=== PATIENT | male | born 1950 | race Caucasian/White ===

== ENCOUNTER 2017-12-13 12:47 | Outpatient (REF) | payer MEDICARE, MEDICAID, SELFPAY ==
[2017-12-13 21:32] LABS: Abs Immature Grans 0.01 k/cumm (0.0-0.09); Absolute Basophil Count 0.02 k/cumm (0.0-0.2); Absolute Eosinophil Count 0.18 k/cumm (0.0-0.7); Absolute Lymphocyte Count 1.19 k/cumm (1.2-3.4); Absolute Monocyte Count 0.73 k/cumm (0.11-0.7); Absolute Neutrophil Count 5.09 k/cumm (1.2-6.7); Basophils % 0.3; Eosinophils % 2.5; HGB 14.4 g/dL (13.5-17.5); Immature Grans % 0.1; Lymphocytes % 16.5; Mean Corp. HGB Concentration 31.3 g/dL (32.0-36.0); Mean Corpuscular Hemoglobin 29.7 pg (27.0-33.0); Mean Corpuscular Volume 94.8 fL (80-95); Mean Platelet Volume 12.8 fL (8.0-11.0); Monocytes % 10.1; Neutrophils % 70.5; Platelet Count 123 x1000/uL (130-400); RBC 4.85 m/cumm (4.50-6.00); White Blood Cell Count 7.22 k/cumm (4.4-10.8)
[2017-12-13 21:57] LABS: ALT 47 U/L (12-78); AST 23 U/L (15-37); Albumin 3.4 g/dL (3.4-5.0); Alkaline Phosphatase 108 U/L (46-116); Anion Gap 8.5 mmol/L (3-11); BUN 27 mg/dL (7-18); Bilirubin, Total 0.7 mg/dL (0.2-1.0); CO2 26.5 mmol/L (21.0-32.0); CREATININE 2.05 mg/dL (0.70-1.30); Calcium 8.9 mg/dL (8.5-10.1); Chloride 107 mmol/L (98-107); Estimated GFR 32.45 (mL/min/1.73m2); Glucose 116 mg/dL (70-100); Potassium 5.1 mmol/L (3.5-5.1); Sodium 142 mmol/L (136-145); TSH (W/Ref FT4) 1.38 uIU/mL (0.358-3.74); Total Protein 6.8 g/dL (6.4-8.2)
== END 2017-12-13 12:48 ==
LOC: NCHCN 12:47
PROVIDERS: PCP Registered Nurse; Visit Provider Nurse Practitioner Family
DX: I48.91 Unspecified atrial fibrillation (principal)
CPT/HCPCS: 80053; 84443; 85025

== ENCOUNTER 2018-04-17 13:35 | Outpatient (REF) | payer MEDICARE, MEDICAID, SELFPAY ==
[2018-04-17 22:10] LABS: Anion Gap 3.5 mmol/L (3-11); BUN 28 mg/dL (7-18); CO2 30.5 mmol/L (21.0-32.0); CREATININE 1.92 mg/dL (0.70-1.30); Calcium 8.9 mg/dL (8.5-10.1); Chloride 109 mmol/L (98-107); Glucose 97 mg/dL (70-100); NT-proBNP 1289 pg/mL; Potassium 5.3 mmol/L (3.5-5.1); Sodium 143 mmol/L (136-145)
[2018-04-17 23:10] LABS: HCT 40.4 % (40.0-50.0); HGB 12.6 g/dL (13.5-17.5); Mean Corp. HGB Concentration 31.2 g/dL (32.0-36.0); Mean Corpuscular Hemoglobin 29.8 pg (27.0-33.0); Mean Corpuscular Volume 95.5 fL (80-95); Mean Platelet Volume 13.1 fL (8.0-11.0); Platelet Count 109 x1000/uL (130-400); RBC 4.23 m/cumm (4.50-6.00); RBC Distribution Width 14.5 % (11.8-14.1); White Blood Cell Count 7.41 k/cumm (4.4-10.8)
== END 2018-04-17 13:55 ==
LOC: NCHCN 13:35
PROVIDERS: PCP Registered Nurse; Visit Provider Registered Nurse
DX: I10 Essential (primary) hypertension (principal); R06.00 Dyspnea, unspecified; I48.91 Unspecified atrial fibrillation; Z86.79 Personal history of other diseases of the circulatory system
CPT/HCPCS: 80048; 85027; 83880

== ENCOUNTER 2018-04-24 12:11 | Outpatient (REF) | payer MEDICARE, MEDICAID, SELFPAY ==
[2018-04-24 22:22] LABS: Anion Gap 5.6 mmol/L (3-11); BUN 34 mg/dL (7-18); CO2 30.4 mmol/L (21.0-32.0); CREATININE 2.36 mg/dL (0.70-1.30); Calcium 9.1 mg/dL (8.5-10.1); Chloride 108 mmol/L (98-107); Estimated GFR 27.59 (mL/min/1.73m2); Glucose 196 mg/dL (70-100); Potassium 5.4 mmol/L (3.5-5.1); Sodium 144 mmol/L (136-145)
== END 2018-04-24 12:31 ==
LOC: NCHCN 12:11
PROVIDERS: PCP Registered Nurse; Visit Provider Registered Nurse
DX: N18.9 Chronic kidney disease, unspecified (principal)
CPT/HCPCS: 80048

== ENCOUNTER 2018-06-18 21:19 | Outpatient (REF) | payer MEDICARE, MEDICAID, SELFPAY ==
[2018-06-18 22:12] LABS: Anion Gap 6.6 mmol/L (3-11); BUN 33 mg/dL (7-18); CO2 29.4 mmol/L (21.0-32.0); CREATININE 1.98 mg/dL (0.70-1.30); Calcium 9.1 mg/dL (8.5-10.1); Chloride 108 mmol/L (98-107); Estimated GFR 33.78 (mL/min/1.73m2); Glucose 114 mg/dL (70-100); Potassium 4.9 mmol/L (3.5-5.1); Sodium 144 mmol/L (136-145)
== END 2018-06-18 21:39 ==
LOC: NCHCN 21:19
PROVIDERS: PCP Registered Nurse; Visit Provider Registered Nurse
DX: N18.9 Chronic kidney disease, unspecified (principal)
CPT/HCPCS: 80048

== ENCOUNTER 2018-07-16 11:24 | Outpatient (REF) | payer MEDICARE, MEDICAID, SELFPAY ==
[2018-07-16 21:22] LABS: Anion Gap 5.9 mmol/L (3-11); BUN 32 mg/dL (7-18); CO2 31.1 mmol/L (21.0-32.0); Chloride 107 mmol/L (98-107); Estimated GFR 33.39 (mL/min/1.73m2); Glucose 121 mg/dL (70-100); Potassium 4.8 mmol/L (3.5-5.1); Sodium 144 mmol/L (136-145)
== END 2018-07-16 11:44 ==
LOC: NCHCN 11:24
PROVIDERS: PCP Registered Nurse; Visit Provider Registered Nurse
DX: N18.9 Chronic kidney disease, unspecified (principal)
CPT/HCPCS: 80048

== ENCOUNTER 2018-08-21 22:23 | Outpatient (REF) | payer MEDICARE, MEDICAID, SELFPAY ==
[2018-08-21 22:18] LABS: BUN 35 mg/dL (7-18); CREATININE 2.05 mg/dL (0.70-1.30); Calcium 8.9 mg/dL (8.5-10.1); Chloride 104 mmol/L (98-107); Estimated GFR 32.45 (mL/min/1.73m2); Glucose 129 mg/dL (70-100); Magnesium 1.9 mg/dL (1.8-2.4); Potassium 4.4 mmol/L (3.5-5.1); Sodium 142 mmol/L (136-145)
[2018-08-21 22:42] LABS: PHOSPHORUS 3.8 mg/dL (2.6-4.7)
== END 2018-08-21 22:43 ==
LOC: NCHCN 22:23
PROVIDERS: PCP Registered Nurse; Visit Provider Registered Nurse
DX: N18.3 Chronic kidney disease, stage 3 (moderate) (principal)
CPT/HCPCS: 80048; 83735; 84100

== ENCOUNTER 2018-09-02 12:27 | Outpatient (REF) | payer MEDICARE, MEDICAID, SELFPAY ==
[2018-09-02 21:13] LABS: COMMENT (LAB VIEW ONLY) 156.55 mg/dL; Microalb ug/mg Crea 46.2 ug/mg Cr
== END 2018-09-02 12:47 ==
LOC: NCHCN 12:27
PROVIDERS: PCP Registered Nurse; Visit Provider Registered Nurse
DX: E11.9 Type 2 diabetes mellitus without complications (principal)
CPT/HCPCS: 82043; 82570

== ENCOUNTER 2018-10-14 13:33 | Outpatient (REF) | payer MEDICARE, MEDICAID, SELFPAY ==
[2018-10-14 21:43] LABS: Anion Gap 5.4 mmol/L (3-11); BUN 26 mg/dL (7-18); CO2 31.6 mmol/L (21.0-32.0); CREATININE 1.78 mg/dL (0.70-1.30); Calcium 9.5 mg/dL (8.5-10.1); Chloride 106 mmol/L (98-107); Estimated GFR 38.09 (mL/min/1.73m2); Glucose 93 mg/dL (70-100); Potassium 4.6 mmol/L (3.5-5.1); Sodium 143 mmol/L (136-145)
[2018-10-14 21:57] LABS: Magnesium 2.1 mg/dL (1.8-2.4)
== END 2018-10-14 13:53 ==
LOC: NCHCN 13:33
PROVIDERS: Internal Medicine Nephrology; PCP Registered Nurse; Visit Provider Registered Nurse
DX: N18.3 Chronic kidney disease, stage 3 (moderate) (principal)
CPT/HCPCS: 80048; 83735

== ENCOUNTER 2019-03-03 08:46 | Outpatient (REF) | payer MEDICARE, MEDICAID, SELFPAY ==
[2019-03-03 22:18] LABS: Anion Gap 10.6 mmol/L (3-11); BUN 35 mg/dL (7-18); CO2 27.4 mmol/L (21.0-32.0); CREATININE 2.04 mg/dL (0.70-1.30); Calcium 9.7 mg/dL (8.5-10.1); Chloride 104 mmol/L (98-107); Estimated GFR 32.54 (mL/min/1.73m2); Glucose 178 mg/dL (70-100); Potassium 4.4 mmol/L (3.5-5.1); Sodium 142 mmol/L (136-145)
[2019-03-03 22:20] LABS: Magnesium 1.8 mg/dL (1.8-2.4)
== END 2019-03-03 09:06 ==
LOC: NCHCN 08:46
PROVIDERS: Internal Medicine Nephrology; PCP Registered Nurse; Visit Provider Registered Nurse
DX: N18.3 Chronic kidney disease, stage 3 (moderate) (principal)
CPT/HCPCS: 80048; 83735

== ENCOUNTER 2019-04-30 09:47 | Outpatient (REF) | payer MEDICARE, MEDICAID, SELFPAY ==
[2019-04-30 22:01] LABS: Anion Gap 6.2 mmol/L (3-11); BUN 26 mg/dL (7-18); CO2 29.8 mmol/L (21.0-32.0); CREATININE 1.77 mg/dL (0.70-1.30); Calcium 9.4 mg/dL (8.5-10.1); Chloride 108 mmol/L (98-107); Estimated GFR 38.33 (mL/min/1.73m2); Glucose 125 mg/dL (74-106); Potassium 4.7 mmol/L (3.5-5.1); Sodium 144 mmol/L (136-145)
[2019-04-30 23:03] LABS: INR 1.8 (0.9-1.1); Prothrombin Time 17.5 sec (9.3-11.0)
== END 2019-04-30 10:07 ==
LOC: NCHCN 09:47
PROVIDERS: PCP Registered Nurse; Visit Provider Registered Nurse
DX: E11.9 Type 2 diabetes mellitus without complications (principal); I48.91 Unspecified atrial fibrillation; Z79.01 Long term (current) use of anticoagulants
CPT/HCPCS: 80048; 85610

== ENCOUNTER 2019-07-29 13:07 | Outpatient (REF) | payer MEDICARE, MEDICAID, SELFPAY ==
[2019-07-29 21:23] LABS: Anion Gap 7.8 mmol/L (3-11); BUN 35 mg/dL (7-18); CO2 30.2 mmol/L (21.0-32.0); CREATININE 2.25 mg/dL (0.70-1.30); Calcium 8.7 mg/dL (8.5-10.1); Chloride 105 mmol/L (98-107); Estimated GFR 29.06 (mL/min/1.73m2); Glucose 69 mg/dL (74-106); Potassium 4.3 mmol/L (3.5-5.1); Sodium 143 mmol/L (136-145)
== END 2019-07-29 13:27 ==
LOC: NCHCN 13:07
PROVIDERS: PCP Registered Nurse; Visit Provider Registered Nurse
DX: I50.23 Acute on chronic systolic (congestive) heart failure (principal); N18.3 Chronic kidney disease, stage 3 (moderate)
CPT/HCPCS: 80048

== ENCOUNTER 2019-07-31 11:48 | Outpatient (REF) | payer MEDICARE, MEDICAID, SELFPAY ==
[2019-07-31 21:02] LABS: Anion Gap 4.3 mmol/L (3-11); BUN 34 mg/dL (7-18); CO2 31.7 mmol/L (21.0-32.0); CREATININE 2.16 mg/dL (0.70-1.30); Calcium 8.9 mg/dL (8.5-10.1); Chloride 107 mmol/L (98-107); Estimated GFR 30.46 (mL/min/1.73m2); Glucose 83 mg/dL (74-106); Potassium 4.5 mmol/L (3.5-5.1); Sodium 143 mmol/L (136-145)
== END 2019-07-31 12:08 ==
LOC: LBN 11:48
PROVIDERS: PCP Registered Nurse; Visit Provider Internal Medicine Nephrology
DX: N17.8 Other acute kidney failure (principal)
CPT/HCPCS: 80048

== ENCOUNTER 2019-09-02 14:43 | Outpatient (REF) | payer MEDICARE, MEDICAID, SELFPAY ==
[2019-09-02 20:43] LABS: Anion Gap 6.2 mmol/L (3-11); BUN 35 mg/dL (7-18); CO2 30.8 mmol/L (21.0-32.0); CREATININE 2.03 mg/dL (0.70-1.30); Calcium 8.8 mg/dL (8.5-10.1); Chloride 107 mmol/L (98-107); Estimated GFR 32.73 (mL/min/1.73m2); Glucose 101 mg/dL (74-106); Potassium 4.6 mmol/L (3.5-5.1); Sodium 144 mmol/L (136-145)
== END 2019-09-02 15:03 ==
LOC: NCHCN 14:43
PROVIDERS: PCP Registered Nurse; Visit Provider Registered Nurse
DX: E87.5 Hyperkalemia (principal)
CPT/HCPCS: 80048

== ENCOUNTER 2019-10-29 22:30 | Outpatient (REF) | payer MEDICARE, MEDICAID, SELFPAY ==
[2019-10-29 22:11] LABS: BUN 34 mg/dL (7-18); CREATININE 2.04 mg/dL (0.70-1.30); Calcium 8.6 mg/dL (8.5-10.1); Chloride 106 mmol/L (98-107); Estimated GFR 32.45 (mL/min/1.73m2); Glucose 110 mg/dL (74-106); Potassium 4.5 mmol/L (3.5-5.1); Sodium 143 mmol/L (136-145)
== END 2019-10-29 22:50 ==
LOC: NCHCN 22:30
PROVIDERS: PCP Registered Nurse; Visit Provider Registered Nurse
DX: I10 Essential (primary) hypertension (principal); N18.9 Chronic kidney disease, unspecified
CPT/HCPCS: 80048

== ENCOUNTER 2020-01-28 09:30 | Outpatient (REF) | payer MEDICARE, MEDICAID, SELFPAY ==
[2020-01-31 10:13] LABS: Patient Race White; SARS-CoV-2 RNA Undetected (Undetected); SARS-CoV-2 Specimen Source Nasal
== END 2020-01-28 09:50 ==
LOC: NCHCN 09:30
PROVIDERS: PCP Registered Nurse; Visit Provider Registered Nurse
DX: Z11.59 Encounter for screening for other viral diseases (principal)
CPT/HCPCS: U0003

== ENCOUNTER 2020-02-06 10:54 | Outpatient (REF) | payer MEDICARE, MEDICAID, SELFPAY ==
[2020-02-06 22:02] LABS: BUN 28 mg/dL (7-18); CREATININE 1.97 mg/dL (0.70-1.30); Chloride 105 mmol/L (98-107); Estimated GFR 33.78 (mL/min/1.73m2); Glucose 101 mg/dL (74-106); Potassium 4.2 mmol/L (3.5-5.1); Sodium 143 mmol/L (136-145)
== END 2020-02-06 11:14 ==
LOC: LBN 10:54
PROVIDERS: PCP Registered Nurse; Visit Provider Internal Medicine Nephrology
DX: N17.9 Acute kidney failure, unspecified (principal)
CPT/HCPCS: 80048

== ENCOUNTER 2020-03-22 15:39 | Outpatient (REF) | payer MEDICARE, MEDICAID, SELFPAY ==
[2020-03-22 22:08] LABS: Anion Gap 8.5 mmol/L (3-11); BUN 43 mg/dL (7-18); CO2 27.5 mmol/L (21.0-32.0); CREATININE 2.25 mg/dL (0.70-1.30); Calcium 8.7 mg/dL (8.5-10.1); Chloride 106 mmol/L (98-107); Estimated GFR 28.98 (mL/min/1.73m2); Glucose 139 mg/dL (74-106); Potassium 4.6 mmol/L (3.5-5.1); Sodium 142 mmol/L (136-145)
== END 2020-03-22 15:59 ==
LOC: LBN 15:39
PROVIDERS: PCP Registered Nurse; Visit Provider Internal Medicine Nephrology
DX: N18.30 Chronic kidney disease, stage 3 unspecified (principal)
CPT/HCPCS: 80048

== ENCOUNTER 2020-04-07 11:38 | Outpatient (REF) | payer MEDICARE, MEDICAID, SELFPAY ==
[2020-04-07 22:31] LABS: ALT 41 U/L (16-63); AST 22 U/L (15-37); Albumin 3.2 g/dL (3.4-5.0); Alkaline Phosphatase 124 U/L (46-116); Anion Gap 6.7 mmol/L (3-11); BUN 36 mg/dL (7-18); Bilirubin, Total 0.7 mg/dL (0.2-1.0); CO2 29.3 mmol/L (21.0-32.0); CREATININE 2.16 mg/dL (0.70-1.30); Calcium 8.9 mg/dL (8.5-10.1); Chloride 107 mmol/L (98-107); Estimated GFR 30.38 (mL/min/1.73m2); Glucose 123 mg/dL (74-106); Potassium 4.7 mmol/L (3.5-5.1); Sodium 143 mmol/L (136-145); Total Protein 6.7 g/dL (6.4-8.2)
== END 2020-04-07 11:58 ==
LOC: NCHCN 11:38
PROVIDERS: Internal Medicine Nephrology; PCP Registered Nurse; Visit Provider Registered Nurse
DX: N18.30 Chronic kidney disease, stage 3 unspecified (principal)
CPT/HCPCS: 80053

== ENCOUNTER 2020-07-07 12:08 | Outpatient (REF) | payer MEDICARE, MEDICAID, SELFPAY ==
[2020-07-07 13:15] LABS: ALT 41 U/L (16-63); AST 23 U/L (15-37); Albumin 3.2 g/dL (3.4-5.0); Alkaline Phosphatase 111 U/L (46-116); Anion Gap 9.4 mmol/L (3-11); BUN 38 mg/dL (7-18); Bilirubin, Total 0.8 mg/dL (0.2-1.0); CO2 27.6 mmol/L (21.0-32.0); CREATININE 1.9 mg/dL (0.70-1.30); Calcium 9.1 mg/dL (8.5-10.1); Chloride 105 mmol/L (98-107); Estimated GFR 35.22 (mL/min/1.73m2); Glucose 176 mg/dL (74-106); Potassium 4.6 mmol/L (3.5-5.1); Sodium 142 mmol/L (136-145); Total Protein 6.8 g/dL (6.4-8.2)
== END 2020-07-07 12:09 | disposition home or self-care (01) ==
LOC: NCHCN 12:08
PROVIDERS: PCP Registered Nurse; Visit Provider Internal Medicine Nephrology
DX: N18.30 Chronic kidney disease, stage 3 unspecified (principal)
CPT/HCPCS: 80053

== ENCOUNTER 2020-07-28 17:04 | Outpatient (REF) | payer MEDICARE, MEDICAID, SELFPAY ==
[2020-07-28 22:32] LABS: COMMENT (LAB VIEW ONLY) 104.99 mg/dL
== END 2020-07-28 17:05 | disposition home or self-care (01) ==
LOC: NCHCN 17:04
PROVIDERS: PCP Registered Nurse; Visit Provider Registered Nurse
DX: E11.9 Type 2 diabetes mellitus without complications (principal); R80.9 Proteinuria, unspecified
CPT/HCPCS: 82043; 82570

== ENCOUNTER 2020-09-17 12:07 | Outpatient (REF) | payer MEDICARE, MEDICAID, SELFPAY ==
[2020-09-17 21:14] LABS: Anion Gap 7.4 mmol/L (3-11); BUN 41 mg/dL (7-18); CO2 28.6 mmol/L (21.0-32.0); CREATININE 2.2 mg/dL (0.70-1.30); Calcium 9.2 mg/dL (8.5-10.1); Chloride 106 mmol/L (98-107); Estimated GFR 29.65 (mL/min/1.73m2); Glucose 97 mg/dL (74-106); Magnesium 2.1 mg/dL (1.8-2.4); Potassium 4.9 mmol/L (3.5-5.1); Sodium 142 mmol/L (136-145)
== END 2020-09-17 12:08 | disposition home or self-care (01) ==
LOC: NCHCN 12:07
PROVIDERS: PCP Registered Nurse; Visit Provider Registered Nurse
DX: N18.9 Chronic kidney disease, unspecified (principal); D63.1 Anemia in chronic kidney disease
CPT/HCPCS: 80048; 83735

== ENCOUNTER 2020-11-26 12:30 | Outpatient (REF) | payer MEDICARE, MEDICAID, SELFPAY ==
[2020-11-26 16:12] LABS: Anion Gap 13.4 mmol/L (3-11); BUN 46 mg/dL (7-18); CO2 21.6 mmol/L (21.0-32.0); Chloride 108 mmol/L (98-107); Glucose 117 mg/dL (74-106); Magnesium 2.2 mg/dL (1.8-2.4); Sodium 143 mmol/L (136-145)
[2020-11-29 09:27] LABS: PSA, Screening 0.6 ng/mL (0.0-6.5)
== END 2020-11-26 12:31 | disposition home or self-care (01) ==
LOC: NCHCN 12:30
PROVIDERS: PCP Registered Nurse; Visit Provider Registered Nurse
DX: Z12.5 Encounter for screening for malignant neoplasm of prostate (principal); I12.9 Hypertensive chronic kidney disease with stage 1 through stage 4 chronic kidney disease, or unspecified chronic kidney disease; N18.9 Chronic kidney disease, unspecified
CPT/HCPCS: 80048; 84153; 83735

== ENCOUNTER 2021-01-27 16:24 | Outpatient (REF) | payer MEDICARE, MEDICAID, SELFPAY ==
[2021-01-27 20:43] LABS: Magnesium 2.3 mg/dL (1.8-2.4)
[2021-01-27 20:51] LABS: ALT 37 U/L (16-63); AST 23 U/L (15-37); Albumin 3.5 g/dL (3.4-5.0); Alkaline Phosphatase 91 U/L (46-116); Anion Gap 6.7 mmol/L (3-11); BUN 47 mg/dL (7-18); Bilirubin, Total 0.6 mg/dL (0.2-1.0); CO2 28.3 mmol/L (21.0-32.0); CREATININE 1.9 mg/dL (0.70-1.30); Calcium 9.1 mg/dL (8.5-10.1); Chloride 110 mmol/L (98-107); Estimated GFR 35.12 (mL/min/1.73m2); Glucose 81 mg/dL (74-106); Sodium 145 mmol/L (136-145); Total Protein 6.8 g/dL (6.4-8.2)
[2021-01-27 21:03] LABS: Calculated LDL 70 mg/dL (<100); Cholesterol 123 mg/dL (<200); HDL Cholesterol 33 mg/dL (40-60); Triglyceride 103 mg/dL (<150)
== END 2021-01-27 16:25 | disposition home or self-care (01) ==
LOC: NCHCN 16:24
PROVIDERS: PCP Registered Nurse; Visit Provider Registered Nurse
DX: I10 Essential (primary) hypertension (principal); E78.5 Hyperlipidemia, unspecified
CPT/HCPCS: 80053; 80061; 83735

== ENCOUNTER 2021-02-03 11:19 | Outpatient (REF) | payer MEDICARE, MEDICAID, SELFPAY ==
[2021-02-03 21:19] LABS: PHOSPHORUS 3.5 mg/dL (2.6-4.7)
[2021-02-07 11:17] LABS: Parathyroid Hormone,Intact 233 pg/mL (19-88)
== END 2021-02-03 11:20 | disposition home or self-care (01) ==
LOC: NCHCN 11:19
PROVIDERS: PCP Registered Nurse; Visit Provider Registered Nurse
DX: N18.9 Chronic kidney disease, unspecified (principal)
CPT/HCPCS: 83970; 84100

== ENCOUNTER 2021-03-15 09:48 | Outpatient (REF) | payer MEDICARE, MEDICAID, SELFPAY ==
[2021-03-15 15:24] LABS: Anion Gap 7.9 mmol/L (3-11); BUN 49 mg/dL (7-18); CO2 28.1 mmol/L (21.0-32.0); CREATININE 1.9 mg/dL (0.70-1.30); Calcium 9.2 mg/dL (8.5-10.1); Chloride 109 mmol/L (98-107); Estimated GFR 35.12 (mL/min/1.73m2); Glucose 110 mg/dL (74-106); Potassium 4.4 mmol/L (3.5-5.1); Sodium 145 mmol/L (136-145)
[2021-03-16 10:45] LABS: Parathyroid Hormone,Intact 112 pg/mL (19-88)
== END 2021-03-15 09:49 | disposition home or self-care (01) ==
LOC: NCHCN 09:48
PROVIDERS: PCP Registered Nurse; Visit Provider Registered Nurse
DX: E21.5 Disorder of parathyroid gland, unspecified (principal)
CPT/HCPCS: 80048; 83970

== ENCOUNTER 2021-11-17 17:28 | Outpatient (REF) | payer OTHER, MEDICAID, SELFPAY ==
[2021-11-17 21:13] LABS: BUN 44 mg/dL (7-18); CREATININE 1.8 mg/dL (0.70-1.30); Calcium 9.5 mg/dL (8.5-10.1); Chloride 108 mmol/L (98-107); Estimated GFR 37.27 (mL/min/1.73m2); Glucose 104 mg/dL (74-106); Potassium 4.9 mmol/L (3.5-5.1); Sodium 141 mmol/L (136-145)
== END 2021-11-17 17:29 | disposition home or self-care (01) ==
LOC: NCHCN 17:28
PROVIDERS: PCP Registered Nurse; Visit Provider Registered Nurse
DX: I10 Essential (primary) hypertension (principal); E11.9 Type 2 diabetes mellitus without complications
CPT/HCPCS: 80048

== ENCOUNTER 2021-12-15 15:17 | Outpatient (REF) | payer OTHER, SELFPAY ==
[2021-12-15 16:00] LABS: Anion Gap 9.1 mmol/L (3-11); BUN 48 mg/dL (7-18); CO2 22.9 mmol/L (21.0-32.0); CREATININE 1.8 mg/dL (0.70-1.30); Calcium 9.1 mg/dL (8.5-10.1); Chloride 108 mmol/L (98-107); Estimated GFR 37.27 (mL/min/1.73m2); Glucose 103 mg/dL (74-106); Potassium 4.9 mmol/L (3.5-5.1); Sodium 140 mmol/L (136-145)
[2021-12-15 16:39] LABS: COMMENT (LAB VIEW ONLY) 79.39 mg/dL; Microalb ug/mg Crea 57.4 ug/mg Cr
== END 2021-12-15 15:18 | disposition home or self-care (01) ==
LOC: NCHCN 15:17
PROVIDERS: PCP Registered Nurse; Visit Provider Registered Nurse
DX: E11.9 Type 2 diabetes mellitus without complications (principal); Z51.81 Encounter for therapeutic drug level monitoring
CPT/HCPCS: 80048; 82043; 82570

== ENCOUNTER 2022-03-31 14:36 | Outpatient (REF) | payer OTHER, SELFPAY ==
[2022-03-31 15:29] LABS: Anion Gap 10.5 mmol/L (3-11); BUN 49 mg/dL (7-18); CO2 23.5 mmol/L (21.0-32.0); Calcium 9.4 mg/dL (8.5-10.1); Chloride 106 mmol/L (98-107); Estimated GFR 34.81 (mL/min/1.73m2); Glucose 115 mg/dL (74-106); Potassium 4.5 mmol/L (3.5-5.1); Sodium 140 mmol/L (136-145)
[2022-03-31 16:04] LABS: Hemoglobin A1C 5.7 % (<5.7)
== END 2022-03-31 14:37 | disposition home or self-care (01) ==
LOC: NCHCN 14:36
PROVIDERS: PCP Registered Nurse; Visit Provider Registered Nurse
DX: E11.9 Type 2 diabetes mellitus without complications (principal); I10 Essential (primary) hypertension
CPT/HCPCS: 80048; 83036

== ENCOUNTER 2022-06-16 14:13 | Outpatient (REF) | payer OTHER, SELFPAY ==
[2022-06-16 14:44] LABS: Anion Gap 5.6 mmol/L (3-11); BUN 40 mg/dL (7-18); CO2 27.4 mmol/L (21.0-32.0); Calcium 9.7 mg/dL (8.5-10.1); Chloride 110 mmol/L (98-107); Estimated GFR 34.81 (mL/min/1.73m2); Glucose 118 mg/dL (74-106); Potassium 4.9 mmol/L (3.5-5.1); Sodium 143 mmol/L (136-145)
== END 2022-06-16 14:14 | disposition home or self-care (01) ==
LOC: LBN 14:13
PROVIDERS: PCP Registered Nurse; Visit Provider Internal Medicine Nephrology
DX: N18.30 Chronic kidney disease, stage 3 unspecified (principal)
CPT/HCPCS: 80048

== ENCOUNTER 2022-06-29 14:24 | Outpatient (REF) | payer OTHER, SELFPAY ==
[2022-06-29 16:39] LABS: Anion Gap 10.2 mmol/L (3-11); BUN 35 mg/dL (7-18); CO2 24.8 mmol/L (21.0-32.0); CREATININE 1.6 mg/dL (0.70-1.30); Calcium 9.9 mg/dL (8.5-10.1); Chloride 108 mmol/L (98-107); Glucose 114 mg/dL (74-106); Potassium 4.9 mmol/L (3.5-5.1); Sodium 143 mmol/L (136-145)
== END 2022-06-29 14:25 | disposition home or self-care (01) ==
LOC: LBN 14:24
PROVIDERS: PCP Registered Nurse; Visit Provider Internal Medicine Nephrology
DX: N17.9 Acute kidney failure, unspecified (principal)
CPT/HCPCS: 80048

== ENCOUNTER 2022-09-28 13:25 | Outpatient (REF) | payer OTHER, SELFPAY ==
[2022-09-28 21:06] LABS: HCT 45.4 % (40.0-50.0); HGB 14.5 g/dL (13.5-17.5); MCH 30.9 pg (27.0-33.0); MCHC 31.9 % (32.0-36.0); MCV 97 fL (80-95); MPV 12.8 fL (8.0-11.0); Platelet Count 119 10^3/uL (130-400); RDW 14.6 % (11.8-14.1); RDW-SD 51.8 fL; WBC 6.81 10^3/uL (4.4-10.8)
[2022-09-28 21:15] LABS: Anion Gap 7.3 mmol/L (3-11); BUN 44 mg/dL (7-18); CO2 26.7 mmol/L (21.0-32.0); CREATININE 1.9 mg/dL (0.70-1.30); Calcium 9.6 mg/dL (8.5-10.1); Calculated LDL 71 mg/dL (<100); Chloride 110 mmol/L (98-107); Cholesterol 125 mg/dL (<200); Estimated GFR 36.79 (mL/min/1.73m2); Glucose 86 mg/dL (74-106); HDL Cholesterol 39 mg/dL (40-60); Potassium 5.1 mmol/L (3.5-5.1); Sodium 144 mmol/L (136-145); Triglyceride 79 mg/dL (<150)
[2022-09-28 21:29] LABS: COMMENT (LAB VIEW ONLY) 25.75 mg/dL
[2022-09-28 21:33] LABS: Microalb ug/mg Crea 148.7 ug/mg Cr
== END 2022-09-28 13:26 | disposition home or self-care (01) ==
LOC: NCHCN 13:25
PROVIDERS: PCP Registered Nurse; Visit Provider Registered Nurse
DX: I10 Essential (primary) hypertension (principal); E78.5 Hyperlipidemia, unspecified; E11.9 Type 2 diabetes mellitus without complications; N18.30 Chronic kidney disease, stage 3 unspecified
CPT/HCPCS: 80048; 80061; 85027; 82043; 82570

== ENCOUNTER 2022-12-27 15:15 | Outpatient (REF) | payer OTHER, MEDICAID, SELFPAY ==
[2022-12-27 21:55] LABS: Anion Gap 9.7 mmol/L (3-11); BUN 35 mg/dL (7-18); CO2 24.3 mmol/L (21.0-32.0); CREATININE 1.9 mg/dL (0.70-1.30); Calcium 10.2 mg/dL (8.5-10.1); Chloride 112 mmol/L (98-107); Estimated GFR 36.79 (mL/min/1.73m2); Glucose 109 mg/dL (74-106); Sodium 146 mmol/L (136-145)
== END 2022-12-27 15:16 | disposition home or self-care (01) ==
LOC: NCHCN 15:15
PROVIDERS: PCP Registered Nurse; Visit Provider Registered Nurse
DX: I10 Essential (primary) hypertension (principal); N18.30 Chronic kidney disease, stage 3 unspecified
CPT/HCPCS: 80048

== ENCOUNTER 2023-03-27 11:24 | Outpatient (REF) | payer OTHER, MEDICAID, SELFPAY ==
[2023-03-27 15:14] LABS: Anion Gap 8.7 mmol/L (3-11); BUN 50 mg/dL (7-18); CO2 24.3 mmol/L (21.0-32.0); CREATININE 2.2 mg/dL (0.70-1.30); Calcium 10.2 mg/dL (8.5-10.1); Chloride 107 mmol/L (98-107); Estimated GFR 30.85 (mL/min/1.73m2); Glucose 123 mg/dL (74-106); Potassium 4.7 mmol/L (3.5-5.1); Sodium 140 mmol/L (136-145)
== END 2023-03-27 11:25 | disposition home or self-care (01) ==
LOC: NCHCN 11:24
PROVIDERS: PCP Registered Nurse; Visit Provider Family Medicine
DX: N18.30 Chronic kidney disease, stage 3 unspecified (principal)
CPT/HCPCS: 80048

== ENCOUNTER 2023-04-27 12:11 | Outpatient (REF) | payer OTHER, MEDICAID, SELFPAY ==
[2023-04-27 14:35] LABS: Albumin 3.3 g/dL (3.4-5.0); Anion Gap 5.1 mmol/L (3-11); BUN 33 mg/dL (7-18); CO2 28.9 mmol/L (21.0-32.0); Calcium 9.9 mg/dL (8.5-10.1); Chloride 109 mmol/L (98-107); Estimated GFR 34.59 (mL/min/1.73m2); Glucose 115 mg/dL (74-106); PHOSPHORUS 3.6 mg/dL (2.6-4.7); Potassium 5.2 mmol/L (3.5-5.1); Sodium 143 mmol/L (136-145)
== END 2023-04-27 12:12 | disposition home or self-care (01) ==
LOC: LBN 12:11
PROVIDERS: PCP Registered Nurse; Visit Provider Internal Medicine Nephrology
DX: N17.9 Acute kidney failure, unspecified (principal)
CPT/HCPCS: 80069

== ENCOUNTER 2023-05-25 11:30 | Outpatient (REF) | payer OTHER, MEDICAID, SELFPAY ==
[2023-05-25 15:51] LABS: Anion Gap 7.9 mmol/L (3-11); BUN 34 mg/dL (7-18); CO2 28.1 mmol/L (21.0-32.0); CREATININE 1.9 mg/dL (0.70-1.30); Calcium 9.5 mg/dL (8.5-10.1); Chloride 107 mmol/L (98-107); Estimated GFR 36.79 (mL/min/1.73m2); Glucose 91 mg/dL (74-106); Potassium 4.6 mmol/L (3.5-5.1); Sodium 143 mmol/L (136-145)
== END 2023-05-25 11:31 | disposition home or self-care (01) ==
LOC: NCHCN 11:30
PROVIDERS: PCP Registered Nurse; Visit Provider Family Medicine
DX: N18.30 Chronic kidney disease, stage 3 unspecified (principal)
CPT/HCPCS: 80048

== ENCOUNTER 2023-12-25 14:07 | Outpatient (REF) | payer OTHER, MEDICAID, SELFPAY ==
[2023-12-25 22:22] LABS: Albumin 3.7 g/dL (3.4-5.0); Anion Gap 9.5 mmol/L (3-11); BUN 36 mg/dL (7-18); CO2 25.5 mmol/L (21.0-32.0); CREATININE 1.8 mg/dL (0.70-1.30); Calcium 10.2 mg/dL (8.5-10.1); Chloride 108 mmol/L (98-107); Estimated GFR 39.01 (mL/min/1.73m2); Glucose 76 mg/dL (74-106); PHOSPHORUS 3.4 mg/dL (2.6-4.7); Potassium 4.8 mmol/L (3.5-5.1); Sodium 143 mmol/L (136-145)
== END 2023-12-25 14:08 | disposition home or self-care (01) ==
LOC: LBN 14:07
PROVIDERS: PCP Registered Nurse; Visit Provider Internal Medicine Nephrology
DX: N17.9 Acute kidney failure, unspecified (principal)
CPT/HCPCS: 80069

== ENCOUNTER 2023-12-26 12:27 | Outpatient (REF) | payer OTHER, MEDICAID, SELFPAY ==
[2023-12-27 20:36] LABS: COMMENT (LAB VIEW ONLY) 61.01 mg/dL
[2023-12-27 21:18] LABS: Microalb ug/mg Crea 187.3 ug/mg Cr
== END 2023-12-26 12:28 | disposition home or self-care (01) ==
LOC: NCHCN 12:27
PROVIDERS: PCP Registered Nurse; Visit Provider Family Medicine
DX: E11.9 Type 2 diabetes mellitus without complications (principal)
CPT/HCPCS: 82043; 82570

== ENCOUNTER 2024-01-25 15:23 | Outpatient (REF) | payer OTHER, MEDICAID, SELFPAY ==
--- NOTE | 2024-01-25 13:30 | SKI_PTH ---
PAT[facility]: Murray Khan [id number] AGE/SX: 73/M ROOM: RE01/25/[address]: Antoinette Pradhan : 1950 BED: DIS: 01/25/2024 SPEC #: [id number] RECD: 01/28/24 12:36 STATUS: SHLOMO REJustin #: [id number] [place]: 01/25/24 13:[address]: Antoinette Pradhan DEPT: Surgical Specimen RECD BY: Ankita Burch ENTERED: 01/28/24 12:37 SP TYPE: AARON KAUR DR: Silvia Frias Tissues: 1 - SKIN BIOPSY(SHAVE/PUNCH) Procedures: SKIN LEVEL 4 Comments: [id number]
== END 2024-01-25 15:24 | disposition home or self-care (01) ==
LOC: NCHCN 15:23
PROVIDERS: PCP Registered Nurse; Visit Provider Family Medicine
DX: L13.1 Subcorneal pustular dermatitis (principal)
CPT/HCPCS: 88305

== ENCOUNTER 2024-02-26 14:44 | Outpatient (REF) | payer OTHER, MEDICAID, SELFPAY ==
[2024-02-26 21:31] LABS: Albumin 3.5 g/dL (3.4-5.0); Anion Gap 8.3 mmol/L (3-11); BUN 44 mg/dL (7-18); CO2 29.7 mmol/L (21.0-32.0); CREATININE 1.8 mg/dL (0.70-1.30); Calcium 9.8 mg/dL (8.5-10.1); Chloride 109 mmol/L (98-107); Estimated GFR 39.01 (mL/min/1.73m2); Glucose 108 mg/dL (74-106); PHOSPHORUS 4.1 mg/dL (2.6-4.7); Potassium 4.7 mmol/L (3.5-5.1); Sodium 147 mmol/L (136-145)
== END 2024-02-26 14:45 | disposition home or self-care (01) ==
LOC: LBN 14:44
PROVIDERS: PCP Registered Nurse; Visit Provider Internal Medicine Nephrology
DX: N17.9 Acute kidney failure, unspecified (principal)
CPT/HCPCS: 80069

== ENCOUNTER 2024-04-21 18:20 | Outpatient (REF) | payer OTHER, MEDICAID, SELFPAY ==
[2024-04-21 21:20] LABS: Albumin 3.8 g/dL (3.4-5.0); Anion Gap 6.1 mmol/L (3-11); BUN 37 mg/dL (7-18); CO2 29.9 mmol/L (21.0-32.0); CREATININE 1.9 mg/dL (0.70-1.30); Calcium 9.6 mg/dL (8.5-10.1); Chloride 111 mmol/L (98-107); Estimated GFR 36.56 (mL/min/1.73m2); Glucose 112 mg/dL (74-106); PHOSPHORUS 3.9 mg/dL (2.6-4.7); Potassium 4.8 mmol/L (3.5-5.1); Sodium 147 mmol/L (136-145)
== END 2024-04-21 18:21 | disposition home or self-care (01) ==
LOC: NCHCN 18:20
PROVIDERS: Internal Medicine Nephrology; PCP Registered Nurse; Visit Provider Family Medicine
DX: N17.9 Acute kidney failure, unspecified (principal)
CPT/HCPCS: 80069

== ENCOUNTER 2024-06-23 19:44 | Outpatient (REF) | payer MEDICARE, MEDICAID, SELFPAY ==
[2024-06-23 21:30] LABS: Albumin 3.3 g/dL (3.4-5.0); Anion Gap 5.6 mmol/L (3-11); BUN 43 mg/dL (7-18); CO2 27.4 mmol/L (21.0-32.0); CREATININE 2.3 mg/dL (0.70-1.30); Chloride 110 mmol/L (98-107); Estimated GFR 29.07 (mL/min/1.73m2); PHOSPHORUS 4.1 mg/dL (2.6-4.7); Potassium 5.1 mmol/L (3.5-5.1); Sodium 143 mmol/L (136-145)
== END 2024-06-23 19:45 | disposition home or self-care (01) ==
LOC: NCHCN 19:44
PROVIDERS: Internal Medicine Nephrology; PCP Registered Nurse; Visit Provider Family Medicine
DX: N17.9 Acute kidney failure, unspecified (principal)
CPT/HCPCS: 80051; 84520; 82040; 82310; 82565; 84100

== ENCOUNTER 2024-09-01 21:08 | Outpatient (REF) | payer MEDICARE, MEDICAID, SELFPAY ==
[2024-09-01 22:01] LABS: Albumin 3.4 g/dL (3.4-5.0); Anion Gap 5.2 mmol/L (3-11); BUN 39 mg/dL (7-18); CO2 26.8 mmol/L (21.0-32.0); CREATININE 2.2 mg/dL (0.70-1.30); Calcium 9.9 mg/dL (8.5-10.1); Chloride 111 mmol/L (98-107); Estimated GFR 30.66 (mL/min/1.73m2); Glucose 102 mg/dL (74-106); PHOSPHORUS 4.4 mg/dL (2.6-4.7); Sodium 143 mmol/L (136-145)
== END 2024-09-01 21:09 | disposition home or self-care (01) ==
LOC: LBN 21:08
PROVIDERS: PCP Registered Nurse; Referring Provider Family Medicine; Visit Provider Internal Medicine Nephrology
DX: N17.9 Acute kidney failure, unspecified (principal)
CPT/HCPCS: 80069

== ENCOUNTER 2024-11-05 12:42 | Outpatient (REF) | payer MEDICARE, MEDICAID, SELFPAY ==
[2024-11-05 14:53] LABS: Albumin 3.8 g/dL (3.4-5.0); Anion Gap 9.8 mmol/L (3-11); BUN 38 mg/dL (7-18); CO2 26.2 mmol/L (21.0-32.0); CREATININE 1.9 mg/dL (0.70-1.30); Calcium 9.5 mg/dL (8.5-10.1); Chloride 108 mmol/L (98-107); Estimated GFR 36.33 (mL/min/1.73m2); Glucose 100 mg/dL (74-106); PHOSPHORUS 3.9 mg/dL (2.6-4.7); Potassium 4.6 mmol/L (3.5-5.1); Sodium 144 mmol/L (136-145)
== END 2024-11-05 12:43 | disposition home or self-care (01) ==
LOC: LBN 12:42
PROVIDERS: PCP Family Medicine; Visit Provider Internal Medicine Nephrology
DX: N17.9 Acute kidney failure, unspecified (principal)
CPT/HCPCS: 80069

== ENCOUNTER 2025-01-06 15:26 | Outpatient (REF) | payer MEDICARE, MEDICAID, SELFPAY ==
[2025-01-06 15:17] LABS: HCT 47.3 % (40.0-50.0); HGB 14.6 g/dL (13.5-17.5); MCH 30.2 pg (27.0-33.0); MCHC 30.9 % (32.0-36.0); MCV 98 fL (80-95); RBC 4.83 10^6/uL (4.36-5.78); RDW 15.6 % (11.8-14.1); RDW-SD 56.3 fL; WBC 6.48 10^3/uL (4.4-10.8)
[2025-01-06 15:29] LABS: Albumin 3.7 g/dL (3.4-5.0); Anion Gap 4.7 mmol/L (3-11); BUN 33 mg/dL (7-18); CO2 31.3 mmol/L (21.0-32.0); Calcium 10.0 mg/dL (8.5-10.1); Chloride 107 mmol/L (98-107); Estimated GFR 34.16 (mL/min/1.73m2); Glucose 115 mg/dL (74-106); Potassium 5.6 mmol/L (3.5-5.1); Sodium 143 mmol/L (136-145)
[2025-01-06 16:59] LABS: Hemoglobin A1C 5.6 % (<5.7)
== END 2025-01-06 15:27 | disposition home or self-care (01) ==
LOC: LBN 15:26
PROVIDERS: PCP Family Medicine; Visit Provider Internal Medicine Nephrology
DX: E11.9 Type 2 diabetes mellitus without complications (principal); N18.32 Chronic kidney disease, stage 3b
CPT/HCPCS: 80069; 85027; 83036; 83970

== ENCOUNTER 2025-02-26 20:28 | Outpatient (REF) | payer MEDICARE, MEDICAID, SELFPAY ==
[2025-02-26 21:52] LABS: COMMENT (LAB VIEW ONLY) 78.99 mg/dL; Microalb ug/mg Crea 81.8 ug/mg Cr
== END 2025-02-26 20:29 | disposition home or self-care (01) ==
LOC: NCHCN 20:28
PROVIDERS: PCP Family Medicine; Visit Provider Family Medicine
DX: E11.9 Type 2 diabetes mellitus without complications (principal)
CPT/HCPCS: 82043; 82570

== ENCOUNTER 2025-05-13 16:02 | Outpatient (REF) | payer MEDICARE, MEDICAID, SELFPAY ==
[2025-05-13 16:36] LABS: HCT 49.6 % (40.0-50.0); HGB 15.6 g/dL (13.5-17.5); MCH 31.0 pg (27.0-33.0); MCHC 31.5 % (32.0-36.0); MCV 99 fL (80-95); MPV 12.6 fL (8.0-11.0); Platelet Count 106 10^3/uL (130-400); RBC 5.03 10^6/uL (4.36-5.78); RDW 14.4 % (11.8-14.1); RDW-SD 52.4 fL; WBC 6.85 10^3/uL (4.4-10.8)
[2025-05-13 16:50] LABS: Albumin 4.4 g/dL (3.2-5.0); Anion Gap 8.8 mmol/L (3-11); BUN 28 mg/dL (9-23); CO2 28.2 mmol/L (20.0-31.0); Calcium 10.0 mg/dL (8.3-10.6); Chloride 107 mmol/L (98-107); Glucose 79 mg/dL (74-106); Potassium 4.3 mmol/L (3.5-5.1); Sodium 144 mmol/L (136-145)
== END 2025-05-13 16:03 | disposition home or self-care (01) ==
LOC: LBN 16:02
PROVIDERS: PCP Family Medicine; Visit Provider Internal Medicine Nephrology
DX: N18.32 Chronic kidney disease, stage 3b (principal)
CPT/HCPCS: 80069; 85027